=== PATIENT | female | born 1980 | race African-American/Black ===

== ENCOUNTER 2019-06-23 22:13 | Emergency (ER) | payer MEDICAID, OTHER ==
[~2019-06-23] VITALS: Ht 172.7 cm; Wt 77.6 kg
--- NOTE | 2019-06-23 22:30 | NUR ---
ED Nurse Note: ermd at bedside
[2019-06-23 22:32] VITALS: BP 134/78
--- NOTE | 2019-06-23 22:32 | NUR ---
ED Nurse Note: pt ambulated into ed from home CO nosebleed and possible broken nose d/t walking into wall at home. Pt denies loss of consciousness. Pt states she was aware of the wall that she walked into. Pt states pain 07/15. VSS. Pt resting in bed
--- NOTE | 2019-06-23 22:36 | Emergency Room Report ---
History of Present Illness General Chief Complaint: Nosebleed Source: Patient Present Illness HPI Patient presents after facial trauma that occurred about half an hour prior to arrival patient reports that she ran into a wall at home heard a crack and started having blood from both of the nostrils Denies any lapse of consciousness denies any chest pain patient has discomfort at the bridge of the nose Denies any lightheadedness Patient reports that she was not sure what to do and presents to the emergency room COVID-19 risk:Contact w/high r: No COVID-19 risk:Travel to affect: No Has patient experienced stewart: No Allergies: Coded Allergies: No Known Allergies (Unverified , 02/07/14) Patient History Past Medical History: see triage record Last Menstrual Period: 06/10/2019 Now: No : 1 Para: 1 Reviewed Nursing Documentation: PMH: Agreed; PSxH: Agreed Nursing Documentation-PMH Past Medical History: No Stated History Review of Systems All Other Systems: negative except mentioned in HPI Physical Exam Vital Signs Date Time Temp Pulse Resp B/P (MAP) Pulse Ox O2 Delivery O2 Flow Rate FiO2 06/23/19 22:22 97.9 90 18 134/78 (96) 96 Room Air Sp02 EP Interpretation: reviewed, normal General Appearance: no apparent distress Head: normocephalic Eyes: bilateral eye PERRL ENT: other - Mild swelling and contusion to the nasal bridge, evidence of bright red blood at the nares bilaterally no active hemorrhage no septal hematoma Neck: full range of motion, supple Respiratory: lungs clear, no respiratory distress, no retraction Musculoskeletal: normal inspection Neurologic: alert, oriented x3 Skin: other - As above Lymphatic: no adenopathy Medical Decision Making Diagnostic Impression: Primary Impression: Epistaxis Additional Impression: Nasal contusion ER Course Given the above history and exam patient does have imaging obtained Read by radiology as no obvious acute fracture patient had initial pressure being applied to the nasal bridge There was small external packing in place as well on repeat evaluation she has improved there is no further active hemorrhage and patient is stable for close outpatient follow-up CT/MRI/US Diagnostic Results CT/MRI/US Diagnostic Results : Impression CT facialNo acute fracture. Minimal mucosal thickening in the bilateral maxillary sinuses. Last Vital Signs Date Time Temp Pulse Resp B/P (MAP) Pulse Ox O2 Delivery O2 Flow Rate FiO2 06/23/19 22:22 97.9 90 18 134/78 (68) 96 Room Air Status: improved Disposition: HOME, SELF-CARE Condition: Improved Additional Instructions: Patient is provided with the discharge instructions notified to follow up with primary doctor in the next 2-3 days otherwise return to the er with any worsening symptoms. Please note that this report is being documented using [employer] technology. This can lead to erroneous entry secondary to incorrect interpretation by the dictating instrument. Sarah Jaime DO Jun 23, 2019 22:36
--- NOTE | 2019-06-23 22:43 | NUR ---
ED Nurse Note: pt taken to CT in stable condition no ss of distress noted.
--- NOTE | 2019-06-23 22:55 | NUR ---
ED Nurse Note: pt returned from ct in stable condition, no ss of distress noted. no adverse reactions noted.
--- NOTE | 2019-06-23 23:25 | Diagnostic Imaging Report ---
Indication: Orbital and maxillofacial trauma and pain Technique: Continuous helical transaxial imaging of the orbits/maxillofacial structures obtained without intravenous contrast administration. Coronal 2-D reformats were also obtained. Study obtained in a Siemens sensation [address] Automatic Exposure Control was utilized. Total Dose length Product (DLP): 297.[address] Dose Index Volume (CTDIvol): 15.3 mGy Comparison: None Findings: There is no evidence of an acute fracture. Paranasal sinuses and mastoids are clear. Soft tissues are unremarkable. Is minimal mucosal thickening within some of the paranasal sinuses. Impression: No evidence of acute injury The CT scanner at [facility] is accredited by the [employer] and the scans are performed using dose optimization techniques as appropriate to a performed exam including Automatic Exposure control.
[2019-06-23 23:40] VITALS: BP 134/78
--- NOTE | 2019-06-23 23:40 | NUR ---
ER DISCHARGE NOTE: Patient is cleared to be discharged home per ERMD, pt is aox4, on room air, with stable vital signs. pt was given dc and prescription instructions, pt was able to verbalize understanding, pt id band removed. pt is able to ambulate with steady gait. pt took all belongings.
== END 2019-06-23 23:40 | disposition home or self-care (01) ==
LOC: EMR 22:29
DX: R04.0 Epistaxis (principal); S00.33XA Contusion of nose, initial encounter; W50.0XXA Accidental hit or strike by another person, initial encounter; Y92.9 Unspecified place or not applicable
CPT/HCPCS: 70486; 99284